=== PATIENT | female | born 1985 | race Caucasian/White ===

== ENCOUNTER 2021-06-14 22:22 | Outpatient (CLI) | payer OTHER, SELFPAY ==
[2021-06-15 00:12] LABS: Adenovirus Not Detected (NOT DETECT); Chlamydia Pneumoniae Not Detected (NOT DETECT); Coronavirus 229E,HKU1,NL63,OC4 Not Detected (NOT DETECT); Human Metapneumovirus Not Detected (NOT DETECT); Human Rhinovirus/Enterovirus Not Detected (NOT DETECT); Influenza A Not Detected (NOT DETECT); Influenza A H1 Not Detected (NOT DETECT); Influenza A H1-2009 Not Detected (NOT DETECT); Influenza A H3 Not Detected (NOT DETECT); Influenza B Not Detected (NOT DETECT); Mycoplasma Pneumoniae Not Detected (NOT DETECT); Parainfluenza Virus Type 1 Not Detected (NOT DETECT); Parainfluenza Virus Type 2 Not Detected (NOT DETECT); Parainfluenza Virus Type 3 Not Detected (NOT DETECT); Parainfluenza Virus Type 4 Not Detected (NOT DETECT); Respiratory Syncytial Virus A Not Detected (NOT DETECT); Respiratory Syncytial Virus B Not Detected (NOT DETECT); SARS-COV-2 Detected (NOT DETECT)
[2021-06-15 00:24] LABS: Results from Genmark
== END 2021-06-14 22:23 | disposition home or self-care (01) ==
PROVIDERS: Visit Provider Emergency Medicine
DX: J11.1 Influenza due to unidentified influenza virus with other respiratory manifestations (principal); Z20.822 Contact with and (suspected) exposure to COVID-19
CPT/HCPCS: 87631; 87635

== ENCOUNTER → 2021-08-16 11:00 | Outpatient (BNVA) | payer OTHER, SELFPAY | PROVIDERS: Visit Provider Nurse Practitioner Family | DX: Z20.822 Contact with and (suspected) exposure to COVID-19 (principal) | CPT/HCPCS: 87635 ==

== ENCOUNTER 2023-12-18 14:19 | Outpatient (CLI) | payer OTHER, SELFPAY ==
--- NOTE | 2023-12-18 14:23 | MM_ITS ---
WS: [id number] BILATERAL 3D TOMOSYNTHESIS DIGITAL SCREENING MAMMOGRAPHY WITH CAD CLINICAL INFORMATION: SCREENING/FAMILY HX OF BREAST CANCER HISTORY: Screening mammogram. Breast pain. COMPARISON: 08/25/2017 TECHNIQUE: Bilateral CC and MLO views. FINDINGS: Postoperative changes bilateral breast implants are new compared to prior unilateral RIGHT diagnostic mammogram 2018. Breast implants appear intact. Scattered fibroglandular densities bilaterally. No suspicious focal mass, asymmetry, calcifications, or architectural distortion. No evidence of malignancy. MM/[place] [id number] IMPRESSION: BI-RADS: 2-Benign FOLLOW UP: 1 Year Follow-up Recommend return to annual screening mammography.
== END 2023-12-18 14:20 | disposition home or self-care (01) ==
LOC: RAD 14:20
PROVIDERS: PCP Family Medicine; Visit Provider Family Medicine
DX: Z12.31 Encounter for screening mammogram for malignant neoplasm of breast (principal); Z98.82 Breast implant status; R92.323 Mammographic fibroglandular density, bilateral breasts
CPT/HCPCS: 77063; 77067

== ENCOUNTER 2025-04-14 13:14 | Outpatient (CLI) | payer OTHER, SELFPAY ==
--- NOTE | 2025-04-14 | MM_ITS ---
WS: [id number] BILATERAL 3D TOMOSYNTHESIS DIGITAL DIAGNOSTIC MAMMOGRAPHY WITH CAD CLINICAL INFORMATION: MASTODYNIA HISTORY: RIGHT breast pain COMPARISON: 12/18/2023 TECHNIQUE: Bilateral CC, MLO, and ML views. FINDINGS: Bilateral breast implants appear intact. The breasts are composed of heterogeneous fibroglandular density, which can limit the detection of small underlying mass lesions. Palpable markers RIGHT breast. Dense underlying parenchymal tissue. Ultrasound of these areas is pending and described below. Unremarkable LEFT breast. ULTRASOUND BREAST RIGHT TECHNIQUE: Ultrasound right breast focused area of concern. CLINICAL INFORMATION: MASTODYNIA FINDINGS: Ultrasound RIGHT breast in the areas of concern and pain. Ultrasound RIGHT breast 10 o'clock position along the axillary tail. Ultrasound RIGHT breast 12 o'clock position 1 cm from the nipple. Dense underlying parenchymal tissue. No cystic or solid lesions. No suspicious lesions to target for biopsy. MM/MM diag BI tomosynthesis [id number] IMPRESSION: DENSITY: The breasts are heterogeneously dense, which may obscure small masses. BI-RADS: 2 - Benign FOLLOW UP: 1 Year Follow-up Recommend return to annual screening mammography.
--- NOTE | 2025-04-14 13:25 | US_ITS ---
WS: [id number] BILATERAL 3D TOMOSYNTHESIS DIGITAL DIAGNOSTIC MAMMOGRAPHY WITH CAD CLINICAL INFORMATION: MASTODYNIA HISTORY: RIGHT breast pain COMPARISON: 12/18/2023 TECHNIQUE: Bilateral CC, MLO, and ML views. FINDINGS: Bilateral breast implants appear intact. The breasts are composed of heterogeneous fibroglandular density, which can limit the detection of small underlying mass lesions. Palpable markers RIGHT breast. Dense underlying parenchymal tissue. Ultrasound of these areas is pending and described below. Unremarkable LEFT breast. ULTRASOUND BREAST RIGHT TECHNIQUE: Ultrasound right breast focused area of concern. CLINICAL INFORMATION: MASTODYNIA FINDINGS: Ultrasound RIGHT breast in the areas of concern and pain. Ultrasound RIGHT breast 10 o'clock position along the axillary tail. Ultrasound RIGHT breast 12 o'clock position 1 cm from the nipple. Dense underlying parenchymal tissue. No cystic or solid lesions. No suspicious lesions to target for biopsy. US/US breast RT limited* [id number] IMPRESSION: DENSITY: The breasts are heterogeneously dense, which may obscure small masses. BI-RADS: 2 - Benign FOLLOW UP: 1 Year Follow-up Recommend return to annual screening mammography.
== END 2025-04-14 13:15 | disposition home or self-care (01) ==
PROVIDERS: PCP Family Medicine; Visit Provider Family Medicine
DX: N64.4 Mastodynia (principal); N63.31 Unspecified lump in axillary tail of the right breast; N63.12 Unspecified lump in the right breast, upper inner quadrant
CPT/HCPCS: 76642; 77062; G0279